=== PATIENT | female | born 1970 | race Caucasian/White ===

== ENCOUNTER 2018-10-11 02:27 | Emergency (ER) | payer MEDICAID ==
[2018-10-11 03:49] LABS: URINE PH (Dip) POC 6.5 (5.0-8.5)
[2018-10-11 03:49] LABS: URINE BLOOD (Dip) POC 2+ (NEGATIVE); URINE GLUCOSE (Dip) POC Negative (NEGATIVE); URINE KETONES (Dip) POC Negative (NEGATIVE); URINE LEUKOCYTE EST (Dip) POC 3+ (NEGATIVE); URINE NITRITE (Dip) POC Negative (NEGATIVE); URINE TOTAL PROTEIN POC 1+ (NEGATIVE)
[2018-10-11] MEDS: KETOROLAC 60 MG INJ IM (04:09)
== END 2018-10-11 04:30 | disposition home or self-care (01) ==
LOC: FTE 02:27
DX: N39.0 Urinary tract infection, site not specified (principal)
CPT/HCPCS: 81003; 81025; 96372; 99284-25